=== PATIENT | female | born 1980 | race Caucasian/White ===

== ENCOUNTER 2016-11-14 16:08 | Emergency (ER) | payer MEDICAID ==
[~2016-11-14] VITALS: Ht 157.5 cm; Wt 68.0 kg
[~2016-11-14 16:08] MED LIST: ADDERALL5 MG PO; BACTRIM DS 8001 TA1 PO; MELATONIN3 M1 PO; MULTI VITAMINS1 TAB PO; NAPROSYN 500MG500 MG PO; NOMEDS *; OMEPRAZOLE20 MG PO
[2016-11-14] MEDS ORDERED: LISINOPRIL5 MG NG (16:18)
--- NOTE | 2016-11-14 17:23 | Emergency Room Report ---
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 N Clinical Suspician of Infection? N Mental Status: 1 - Regular (Normal Baseline) Sepsis Risk:Possible Sepsis Risk Have you (or family members/close friends) recently traveled outside the [place]? N If Yes, where/when: Have you had exposure to infectious disease within the past month? TB? Other? Specify: Source patient, RN notes reviewed, family, RN/MD Exam Limitations no limitations Comment This is a 36-year-old female patient presented to the emergency room with productive cough, body aches, subjective fever, sore throat the RIGHT nose for the past 5-7 days, gradually getting worse over the past 4 hours. Patient denies any recent travel or exposure to sick contacts. ALLERGIES Coded Allergies: acetaminophen (From PERCOCET) (Intermediate, 11/14/16) oxycodone (From PERCOCET) (Intermediate, 11/14/16) Home Medications Reported Medications Omeprazole (Omeprazole 20MG) 20 MG PO DAILY #30 Amphetamine Salt Combination (Adderall) 5 MG PO BID Lisinopril 5 MG NG DAILY #30 History Medical History General CAD? No Angina: No [place]: No Hypertension? No Hyperlipidemia? No CHF? No COPD? No Asthma? No Anemia? No Hernia? Yes Thyroid Problems? No Hypothyroidism? No CVA? No Seizures? No Diabetes? No End Stage Renal Disease? No UTI? No Stones? No GB Disease: Yes Nephritic Syndrome? No Asplenia? No Hepatitis? No Sickle Cell Disease? No Arthritis? No Cataracts? No Glaucoma? No MRSA? No TB? No Cancer? 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 Respiratory cough Physical Exam Vital Signs Vital Signs Date Time Temp Pulse Resp B/P Pulse O2 O2 Flow FiO2 Ox Delivery Rate 11/14 1748 98.5 94 20 109/69 99 11/14 1611 98.5 99 20 133/83 99 General Appearance normal appearance, WD/WN, no apparent distress Ear, Nose, Throat hearing grossly normal, sinus pain/drainage, nasal congestion, pharyngeal erythema Neck normal inspection, non-tender, supple, full range of motion Respiratory Status Yes: trachea midline, chest symmetrical, non tender chest. No: respiratory distress. Lung Sounds bilateral: normal breath sounds, lungs clear. 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 No Comment Advised patient to take her antibiotics as directed, follow-up with family physician if no better in 2-3 days. She will alternating Motrin and Tylenol for fever/pain control. Results/Orders Laboratory Tests 11/14/16 1615: Influenza Type A Ag NOT DETECTED, Influenza Type B Ag NOT DETECTED Orders Procedure Date/time Status URINE 11/14 1722 Complete INFLUENZA A&B ANTIGENS 11/14 1614 Complete Departure Departure Time of Disposition 1720 Disposition DC Home or Self Care(routine) Clinical Impression Primary Impression: Bronchitis Condition STABLE Referrals Perez Murphy MD (Family): 2 Days-Call Office if not better Patient Instructions DI for Acute Bronchitis Additional Instructions Please take the medication prescribed as directed, follow-up with family doctor if no better, per discharge instructions. Discharge Counseling Counseled pt/family regarding diagnosis, test results, medications/RX, home care, follow up needs Comment Please take the medication prescribed as directed, follow-up with family doctor if no better, per discharge instructions. Prescriptions Current Visit Scripts Amoxicillin/Potassium Clav (Augmentin 875-125 Tablet) 1 EACH PO BID #20 TAB ED Critical Care Critical Care No at 1929
--- NOTE | 2016-11-14 17:23 | Emergency Room Report ---
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 N Clinical Suspician of Infection? N Mental Status: 1 - Regular (Normal Baseline) Sepsis Risk:Possible Sepsis Risk Have you (or family members/close friends) recently traveled outside the [place]? N If Yes, where/when: Have you had exposure to infectious disease within the past month? TB? Other? Specify: Source patient, RN notes reviewed, family, RN/MD Exam Limitations no limitations Comment This is a 36-year-old female patient presented to the emergency room with productive cough, body aches, subjective fever, sore throat the RIGHT nose for the past 5-7 days, gradually getting worse over the past 4 hours. Patient denies any recent travel or exposure to sick contacts. ALLERGIES Coded Allergies: acetaminophen (From PERCOCET) (Intermediate, 11/14/16) oxycodone (From PERCOCET) (Intermediate, 11/14/16) Home Medications Reported Medications Omeprazole (Omeprazole 20MG) 20 MG PO DAILY #30 Amphetamine Salt Combination (Adderall) 5 MG PO BID Lisinopril 5 MG NG DAILY #30 History Medical History General CAD? No Angina: No [place]: No Hypertension? No Hyperlipidemia? No CHF? No COPD? No Asthma? No Anemia? No Hernia? Yes Thyroid Problems? No Hypothyroidism? No CVA? No Seizures? No Diabetes? No End Stage Renal Disease? No UTI? No Stones? No GB Disease: Yes Nephritic Syndrome? No Asplenia? No Hepatitis? No Sickle Cell Disease? No Arthritis? No Cataracts? No Glaucoma? No MRSA? No TB? No Cancer? 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 Respiratory cough Physical Exam Vital Signs Vital Signs Date Time Temp Pulse Resp B/P Pulse O2 O2 Flow FiO2 Ox Delivery Rate 11/14 1748 98.5 94 20 109/69 99 11/14 1611 98.5 99 20 133/83 99 General Appearance normal appearance, WD/WN, no apparent distress Ear, Nose, Throat hearing grossly normal, sinus pain/drainage, nasal congestion, pharyngeal erythema Neck normal inspection, non-tender, supple, full range of motion Respiratory Status Yes: trachea midline, chest symmetrical, non tender chest. No: respiratory distress. Lung Sounds bilateral: normal breath sounds, lungs clear. 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 No Comment Advised patient to take her antibiotics as directed, follow-up with family physician if no better in 2-3 days. She will alternating Motrin and Tylenol for fever/pain control. Results/Orders Laboratory Tests 11/14/16 1615: Influenza Type A Ag NOT DETECTED, Influenza Type B Ag NOT DETECTED Orders Procedure Date/time Status URINE 11/14 1722 Complete INFLUENZA A&B ANTIGENS 11/14 1614 Complete Departure Departure Time of Disposition 1720 Disposition DC Home or Self Care(routine) Clinical Impression Primary Impression: Bronchitis Condition STABLE Referrals Perez Murphy MD (Family): 2 Days-Call Office if not better Patient Instructions DI for Acute Bronchitis Additional Instructions Please take the medication prescribed as directed, follow-up with family doctor if no better, per discharge instructions. Discharge Counseling Counseled pt/family regarding diagnosis, test results, medications/RX, home care, follow up needs Comment Please take the medication prescribed as directed, follow-up with family doctor if no better, per discharge instructions. Prescriptions Current Visit Scripts Amoxicillin/Potassium Clav (Augmentin 875-125 Tablet) 1 EACH PO BID #20 TAB ED Critical Care Critical Care No at 1925
[2016-11-14] MEDS ORDERED: AUGMENTIN 875-1 EACH PO (17:43)
[2016-11-14 17:48] VITALS: BP 109/69
== END 2016-11-14 17:50 | disposition home or self-care (01) ==
LOC: ER 16:08
DX: J20.9 Acute bronchitis, unspecified (principal)